=== PATIENT | female | born 1985 | race Caucasian/White ===

== ENCOUNTER 2016-04-18 10:59 | Outpatient (CLI) | payer OTHER | END 2016-04-18 11:00 | disposition home or self-care (01) | DX: N64.52 Nipple discharge (principal) ==

== ENCOUNTER 2016-10-02 13:46 | Outpatient (CLI) | payer OTHER ==
--- NOTE | 2016-10-02 17:34 | Mammography Report ---
DIGITAL DIAGNOSTIC LEFT MAMMOGRAM: 10/02/2016 CLINICAL INDICATION: Intermittent spontaneous clear to milky nipple discharge. COMPARISON: 04/18/2016 TECHNIQUE: Left CC, MLO, laterally exaggerated CC, true lateral, spot magnification views. The left breast again demonstrates heterogeneously dense fibroglandular parenchyma. A few punctate, typically benign calcifications are present. No suspicious masses, clustered microcalcifications, or regions of architectural distortion are identified. Specifically, no left retroareolar lesion is ap preciated. There has been no significant interval change. IMPRESSION: BENIGN FINDINGS. RECOMMENDATION: CONTINUED CLINICAL MANAGEMENT. ROUTINE ANNUAL SCREENING, TO COMMENCE AT AGE 40, UNL ESS OTHERWISE CLINICALLY INDICATED. BIRADS CATEGORY: 2, BENIGN FINDINGS. STANDARD QUALIFYING STATEMENTS 1. This examination was reviewed with the aid of Computed-Aided Detection (CAD). 2. A negative or benign imaging report should not delay biopsy if clinically suspicious findings are present. Consider surgical consultation if warranted. More than 5% of cancers are not identified b y imaging. 3. Dense breasts may obscure an underlying neoplasm. JOB #: [id number] EXT JOB #:
== END 2016-10-02 13:47 | disposition home or self-care (01) ==
LOC: DI 13:46
PROVIDERS: ATTEND Surgery
DX: N64.52 Nipple discharge (principal)

== ENCOUNTER 2017-12-10 09:45 | Outpatient (CLI) | payer OTHER | END 2017-12-10 09:46 | disposition home or self-care (01) | LOC: SC 09:45 | PROVIDERS: ATTEND Internal Medicine Pulmonary Disease | DX: G47.10 Hypersomnia, unspecified (principal); R51 Headache; R06.83 Snoring; R41.89 Other symptoms and signs involving cognitive functions and awareness; G47.8 Other sleep disorders | CPT/HCPCS: 99203; 99212 ==

== ENCOUNTER 2018-02-01 20:43 | Outpatient (CLI) | payer OTHER | END 2018-02-01 20:44 | disposition home or self-care (01) | LOC: SC 20:43 | PROVIDERS: ATTEND Internal Medicine Pulmonary Disease | DX: G47.61 Periodic limb movement disorder (principal) | CPT/HCPCS: 95810 ==

== ENCOUNTER 2018-03-10 12:45 | Outpatient (CLI) | payer OTHER | END 2018-03-10 12:46 | disposition home or self-care (01) | LOC: SC 12:45 | PROVIDERS: ATTEND Nurse Practitioner Family | DX: R06.83 Snoring (principal); G47.61 Periodic limb movement disorder; G25.81 Restless legs syndrome; R68.84 Jaw pain | CPT/HCPCS: 99212; 99214 ==

== ENCOUNTER 2019-06-09 08:00 | Outpatient (CLI) | payer OTHER ==
[2019-06-09 20:31] LABS: TRICHOMONAS VAGINALIS DNA NEGATIVE (NEGATIVE)
== END 2019-06-09 23:59 | disposition home or self-care (01) ==
LOC: LAB.R 08:00
PROVIDERS: ATTEND Obstetrics & Gynecology
DX: Z36.85 Encounter for antenatal screening for Streptococcus B (principal)
CPT/HCPCS: 87491; 87591; 87661; 87797

== ENCOUNTER 2019-07-08 12:52 | Inpatient (IN) | payer OTHER ==
[2019-07-08] MEDS ORDERED: miSOPROStoL 200 MCG TABLET PR PRN (14:00)
[2019-07-08] MEDS ORDERED: LACTATED RINGERS 1,000 ML IV SCH (14:00)
[2019-07-08] MEDS ORDERED: SODIUM CHLORIDE FLUSH 0.9% 10 ML SYRINGE IVP PRN (14:00)
[2019-07-08] MEDS ORDERED: fentaNYL 100 MCG/2 ML VIAL IVP PRN (14:00)
[2019-07-08] MEDS ORDERED: ONDANSETRON 4 MG/2 ML VIAL IVP PRN (14:00)
[2019-07-08] MEDS ORDERED: METHYLERGONOVINE 0.2 MG/ML VIAL IM PRN (14:00)
--- NOTE | 2019-07-08 14:26 | PREOP HISTORY & PHYSICAL ---
DATE OF SERVICE: 07/08/2019 Physician: Otilio Melendez MD IDENTIFICATION: The patient is a 34-year-old G3, P2 female whose EDC is July 08. This was determined with early exams. She is currently 39.6 weeks. CHIEF COMPLAINT: Desires induction. HISTORY OF PRESENT ILLNESS: The patient initiated her OB care at [facility]. Her labs show her to be O positive. She is rubella immune. Her STI checks are negative. Her 50 gram Glucola was 116. She is GBS negative. Antibody screen is also negative. PAST MEDICAL HABITS: Hypothyroidism. CURRENT MEDICATIONS 1. vitamins. 2. Stool softener. 3. Levothyroxine 125 mcg daily. PAST SURGICAL HISTORY: The patient has had an appendectomy, as well as a thyroid lobectomy. 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 She denies the use of street or addictive drugs, alcohol, marijuana or cigarettes. She is active duty. She is and lives with her spouse. FAMILY HISTORY: Positive for diabetes, high cholesterol, hypertension, as well as thyroid disorder. PHYSICAL EXAMINATION GENERAL: Patient is a well-developed, well-nourished female. She is obese. VITAL SIGNS: Normal. HEENT: Pupils are equal, round. Extraocular muscles intact. Thyroid is not palpably enlarged. HEART: Regular rate and rhythm without murmurs. LUNGS: Lung escalera are clear without rales or wheezes. BACK: No spinal or CVA tenderness noted. ABDOMEN: Her exam on the showed her fundal height to be 40 cm. Her cervix was 3 cm, 40%, -2 and anterior. Today, her exam still showed her 3 cm, 40%, -2, but the cervix was now more posterior. IMPRESSION 1. A 34-year-old G3, P2, at 39.6 weeks. 2. The patient desires induction of labor. At this time, we will start her on Pitocin. When the head is sufficiently distended, we will plan to rupture membranes. She will have an epidural as needed, as indicated. TD: 07/08/2019 14:10 MTDD
[2019-07-08 14:29] LABS: BASOPHILS % (AUTO) 0.3 %; EOSINOPHILS # (AUTO) 0.1 10^3/uL (0.0-0.7); EOSINOPHILS % (AUTO) 0.8 %; HGB - HEMOGLOBIN 12.4 g/dL (12.0-16.0); LYMPHOCYTES # (AUTO) 1.7 10^3/uL (1.5-3.5); LYMPHOCYTES % (AUTO) 14.8 %; MEAN CORPUSCULAR HEMOGLOBIN 31.1 pg (27.0-31.0); MEAN CORPUSCULAR HGB CONC 33.9 g/dL (32.0-36.0); MEAN CORPUSCULAR VOLUME 91.7 fL (81.0-99.0); MEAN PLATELET VOLUME 12.4 fL (7.9-10.8); MONOCYTES # (AUTO) 0.7 10^3/uL (0.0-1.0); MONOCYTES % (AUTO) 5.9 %; NEUTROPHILS # (AUTO) 8.6 10^3/uL (1.5-6.6); PLT - PLATELET COUNT 163 10^3/uL (130-450); RED BLOOD COUNT 3.99 10^6/uL (4.20-5.40); RED CELL DISTRIBUTION WIDTH 12.7 % (12.0-15.0); WHITE BLOOD COUNT 11.2 x10^3/uL (4.8-10.8)
[2019-07-08] MEDS ORDERED: OXYTOCIN/SODIUM CHLORIDE 500 ML IV SCH (14:49)
--- NOTE | 2019-07-08 18:42 | PROVIDER PROGRESS NOTE ---
Labor Progress Note - Uterine Monitoring Uterine Monitoring Mode: positive: External toco Contraction Frequency (min/apart): 3-5 Contraction Intensity: positive: Mild to moderate (3/10) Uterine Resting Tone: positive: Soft - Monitoring Monitor Mode: positive: External ultrasound Heart Rate Baseline: 140 Heart Rate Variability: positive: Moderate (6-25 bmp) Accelerations: positive: Present, 15x15 Decelerations: positive: None Strip Review: positive: Category I - Vaginal Exam Dilation (in cm): 4 Effacement (%): 50% Station: -2 Cervical Position: Midposition - Labor Progress Note Labor Progress Note/Additional Text: Internal oss is still tight and strong. Stop pit and give misoprostal
[2019-07-08] MEDS: miSOPROStoL 100 MCG TABLET BC SCH ×2 (19:43→23:45)
[2019-07-08] MEDS ORDERED: miSOPROStoL 100 MCG TABLET BC SCH (20:00)
[2019-07-09] MEDS ORDERED: miSOPROStoL 100 MCG TABLET BC SCH (03:55)
--- NOTE | 2019-07-09 08:06 | PROVIDER PROGRESS NOTE ---
Labor Progress Note - Uterine Monitoring Uterine Monitoring Mode: positive: External toco Contraction Frequency (min/apart): 5 Contraction Intensity: positive: Mild Uterine Resting Tone: positive: Soft - Monitoring Monitor Mode: positive: External ultrasound Heart Rate Baseline: 135 Heart Rate Variability: positive: Moderate (6-25 bmp) Accelerations: positive: Present, 15x15 Decelerations: positive: Variable, Intermittent (<50% x20 min) Strip Review: positive: Category I - Vaginal Exam Dilation (in cm): 5 Effacement (%): 75 Station: -2 Cervical Position: Midposition - Labor Progress Note Labor Progress Note/Additional Text: cervix is soft. internal oss has resolved. Start pit, AROM when able.
[2019-07-09] MEDS: LEVOTHYROXINE 125 MCG TABLET PO SCH (08:11)
[2019-07-09] MEDS ORDERED: OXYTOCIN/SODIUM CHLORIDE 500 ML IV SCH (09:00)
[2019-07-09] MEDS ORDERED: LIDOCAINE-MPF 1% 30 ML VIAL ONE (12:41)
[2019-07-09] MEDS ORDERED: miSOPROStoL 200 MCG TABLET ONE (13:25)
[2019-07-09] MEDS: OXYTOCIN/SODIUM CHLORIDE 500 ML IV PRN ×3 (14:23→17:10)
[2019-07-09] MEDS ORDERED: TRANEXAMIC ACID 1,000 MG/10 ML VIAL ONE (14:40)
[2019-07-09] MEDS ORDERED: TRANEXAMIC ACID 1,000 MG in SODIUM CHLORIDE 0.9% 100ML 100 ML IV STA (14:46)
[2019-07-09] MEDS ORDERED: SIMETHICONE CHEW 80 MG TABLET PO PRN (15:45)
[2019-07-09] MEDS ORDERED: ACETAMINOPHEN 500 MG TABLET PO PRN (15:45)
[2019-07-09] MEDS ORDERED: CARBOPROST TROMETHAMINE 250 MCG/ML AMP IM PRN (15:50)
[2019-07-09] MEDS ORDERED: LACTATED RINGERS 1,000 ML IV SCH (16:00)
[2019-07-09 16:07] LABS: BASOPHILS # (AUTO) 0.1 10^3/uL (0.0-0.1); BASOPHILS % (AUTO) 0.3 %; EOSINOPHILS % (AUTO) 0.1 %; HGB - HEMOGLOBIN 11.1 g/dL (12.0-16.0); LYMPHOCYTES # (AUTO) 1.1 10^3/uL (1.5-3.5); LYMPHOCYTES % (AUTO) 6.3 %; MEAN CORPUSCULAR HEMOGLOBIN 30.5 pg (27.0-31.0); MEAN CORPUSCULAR VOLUME 92.3 fL (81.0-99.0); MEAN PLATELET VOLUME 12.5 fL (7.9-10.8); MONOCYTES # (AUTO) 0.8 10^3/uL (0.0-1.0); MONOCYTES % (AUTO) 4.7 %; NEUTROPHILS # (AUTO) 15.2 10^3/uL (1.5-6.6); NEUTROPHILS % (AUTO) 87.6 %; PLT - PLATELET COUNT 151 10^3/uL (130-450); RED BLOOD COUNT 3.64 10^6/uL (4.20-5.40); RED CELL DISTRIBUTION WIDTH 12.9 % (12.0-15.0); WHITE BLOOD COUNT 17.3 x10^3/uL (4.8-10.8)
--- NOTE | 2019-07-09 16:13 | PROVIDER PROGRESS NOTE ---
Subjective - Prog Note Date Prog Note Date: 07/09/19 Prog Note Time: 13:00 - Subjective Subjective: Patient is laboring without epidural. Coping well. Membranes intact. Objective - Vital Signs/Intake & Output Reviewed Vital Signs: Yes Intake & Output: Intake & Output 07/06/19 07/07/19 07/08/19 07/09/19 23:59 23:59 23:59 23:59 Intake Total 1000 Balance 1000 - Objective General Appearance: positive: Moderate distress Respiratory: positive: No respiratory distress Skin: positive: Color nml Extremities: positive: Non-tender Neurologic/Psychiatric: positive: Oriented x3 (SVE 5.5/80/-2) - Lab Results Fish Bones: 07/09/19 15:00 Other Labs: Lab Results x24hrs 07/09/19 07/09/19 07/09/19 Range/Units 15:00 15:00 14:50 Whole Blood INR 0.9 (0.8-1.2) Fibrinogen 441 (220-496) mg/dL Blood Type Blood Type Recheck O POSITIVE Antibody Screen Crossmatch IS Only 07/08/19 Range/Units 14:00 Whole Blood INR (0.8-1.2) Fibrinogen (220-496) mg/dL Blood Type O POSITIVE Blood Type Recheck Antibody Screen NEGATIVE Crossmatch IS Only See Detail Assessment/Plan - Problem List (1) Elective induction of labor planned Impression: Induction of labor: Pitocin at 11 mU/min EFM 130 mod kannan 15x15 accels no decels TOCO: Q2-3 min GBS neg ETA AROM at 13:01 Minimal passage of fluid
[2019-07-09] MEDS ORDERED: ceFAZolin 2 GM in SODIUM CHLORIDE 0.9% MINIBAG 100 ML IV ONE (17:00)
[2019-07-09] MEDS ORDERED: LIDOCAINE-MPF 1% 30 ML VIAL ID PRN (17:24)
[2019-07-09] MEDS: IBUPROFEN 600 MG TABLET PO PRN (17:27)
[2019-07-09] MEDS: SODIUM CHLORIDE FLUSH 0.9% 10 ML SYRINGE IVP SCH (17:46)
--- NOTE | 2019-07-09 17:52 | DELIVERY NOTE ---
Delivery Note - Labor Labor: positive: Induced by oxytocin - Infant Delivery Method Delivery Method: positive: Spontaneous vaginal delivery - Cervical Ripening Method Cervical Ripening Method: positive: Misoprostil - Presentation Presentation: positive: Vertex - Nuchal Cord Nuchal Cord: positive: Present - Anesthetic Anesthetic: positive: Lidocaine - 1% plain Volume: positive: 4cc - Amniotic Fluid Description Amniotic Fluid Description: positive: Bloody - Laceration Laceration: positive: 2nd degree - Suture Suture Type: positive: Vicryl Suture Size: positive: 3-0 - Delivery Outcome Delivery Outcome: positive: Livebirth - Elmo : positive: Placed in direct skin contact with mother, Warmed, [place] used sex: positive: Male - Cord Cord: positive: 3 vessels - Placenta Placenta: positive: Intact, Expressed - Estimated Blood Loss Estimated Blood Loss (in cc): 1,600 (may be as much as 2L) - Post Delivery Events Post Delivery Events: positive: Hemorrhage - Delivery Comments (Free Text/Narrative) Delivery Comments (Free Text/Narrative): STAGE I: Patient is a 34-year-old G3, P2 at 40 weeks and 0 days estimated gestational age with a SUNNI of 07/09/2019 admitted on 07/08/2019 at 39 weeks and 6 days for elective induction of labor. Initial SVE was 350-2 station. She was admitted and started on Pitocin for indcution. She received Pitocin infusion from 15:00-18:30 reaching a max dose of 10 milliunits/min. With minimal change in her cervical exam, pitocin was discontinued and she was started on misoprostol for cervical ripening. She received 2 doses of misoprostol 25 mcg followed with 4 doses of 50 mcg misopro stol. She was then started up on Pitocin at 8:30 AM on 07/09/19. She reached a max dose of 11 unit milliunits per minute. Patient underwent artificial rupture of membranes, notable for passage of scant fluid, blood-tinged. She progressed rapidly to complete at 1400. She began pushing at 1403. GBS negative, antibiotics were not indicated. Did not receive any analgesia/epidural for unmedicated labor course. Category 1 tracing throughout all of stage I other than the final few minutes prior to delivery, at which time she showed some recurrent variables. STAGE II: Patient was noted to be complete at 1400. She began pushing at 1403. She delivered after less than 1 minute of pushing with time of 1404. She delivered a viable male infant from vertex/FRANKLIN presentation. Right shoulder was anterior and delivered easily. had both a tight nuchal and a bandolier cord. Due to the rapidity of the delivery, infant was delivered through the cord. Infant was placed on mother's chest. Cord was clamped x2 and cut after cord pulsations had ceased. Apgars were 8 and 9 and weight is pending. STAGE III: Placenta was delivered at 1423 with manual expression and gentle downward traction on the cord. Pitocin has been started immediately after delivery of the . It was discontinued due to delayed delivery of the placenta. The placenta delivered at 1423. At that time Pitocin was restarted. Patient was also given misoprostol 600 mcg BC x1 at 14:23 due to heavy vaginal bleeding following delivery of the placenta. hemorrhage was managed with bimanual massage in addition to the Pitocin and misoprostol. Methergine 0.2 mg given at 1430. Bleeding slowed at that point. Patient had a small second-degree laceration which was repaired with 3-0 Vicryl in the usual sterile fashion in layers. She was pretreated with a total of 4 cc lidocaine 1% without epinephrine. Bleeding increased shortly after completion of the repair. Patient was given tranexamic acid 1 g IV x1 at 1446. A second line was placed and labs were drawn. She was also given IV fluid bolus of 500 cc LR in addition to her continuous infusion of 150 cc/hr. At close of procedure, good hemostasis was noted. Patient was given cefazolin 2g IV x1 for porphylaxis given heavy manipulation of the uterus. Total EBL was estimated to be 1600.
[2019-07-09] MEDS ORDERED: diphenhydrAMINE INJ 50 MG/ML VIAL IVP ONE (17:55)
[2019-07-09 18:02] LABS: BASOPHILS # (AUTO) 0.1 10^3/uL (0.0-0.1); BASOPHILS % (AUTO) 0.4 %; HGB - HEMOGLOBIN 10.4 g/dL (12.0-16.0); LYMPHOCYTES # (AUTO) 1.6 10^3/uL (1.5-3.5); LYMPHOCYTES % (AUTO) 7.7 %; MEAN CORPUSCULAR HEMOGLOBIN 30.7 pg (27.0-31.0); MEAN CORPUSCULAR VOLUME 92.9 fL (81.0-99.0); MEAN PLATELET VOLUME 11.5 fL (7.9-10.8); MONOCYTES % (AUTO) 4.8 %; NEUTROPHILS # (AUTO) 18.3 10^3/uL (1.5-6.6); NEUTROPHILS % (AUTO) 86.1 %; PLT - PLATELET COUNT 153 10^3/uL (130-450); RED BLOOD COUNT 3.39 10^6/uL (4.20-5.40); RED CELL DISTRIBUTION WIDTH 12.9 % (12.0-15.0); WHITE BLOOD COUNT 21.2 x10^3/uL (4.8-10.8)
[2019-07-09 18:09] LABS: INR 1.1 (0.8-1.2); PT - PROTHROMBIN TIME 12.6 secs (9.9-12.6)
[2019-07-09 18:44] LABS: DIFFERENTIAL COMMENT MANUAL=AUTO DIFF; PLATELET ESTIMATE, MANUAL NORMAL (130-450,000) (NORMAL); PLATELET MORPHOLOGY NORMAL APPEARANCE (NORMAL); RBC MORPHOLOGY (MULTIPLE) NORMAL APPEARANCE (NORMAL)
[2019-07-09 22:31] LABS: HGB - HEMOGLOBIN 10.1 g/dL (12.0-16.0); MEAN CORPUSCULAR HEMOGLOBIN 31.1 pg (27.0-31.0); MEAN CORPUSCULAR HGB CONC 34.5 g/dL (32.0-36.0); MEAN CORPUSCULAR VOLUME 90.2 fL (81.0-99.0); MEAN PLATELET VOLUME 11.5 fL (7.9-10.8); RED BLOOD COUNT 3.25 10^6/uL (4.20-5.40); WHITE BLOOD COUNT 18.8 x10^3/uL (4.8-10.8)
[2019-07-10] MEDS: ACETAMINOPHEN 325 MG TABLET PO PRN ×4 (02:56→21:55)
[2019-07-10 06:20] LABS: HGB - HEMOGLOBIN 9.2 g/dL (12.0-16.0); MEAN CORPUSCULAR HEMOGLOBIN 30.6 pg (27.0-31.0); MEAN CORPUSCULAR HGB CONC 33.6 g/dL (32.0-36.0); MEAN PLATELET VOLUME 11.5 fL (7.9-10.8); RED BLOOD COUNT 3.01 10^6/uL (4.20-5.40); RED CELL DISTRIBUTION WIDTH 13.3 % (12.0-15.0)
[2019-07-10] MEDS: LEVOTHYROXINE 125 MCG TABLET PO SCH (06:49)
[2019-07-10] MEDS: SODIUM CHLORIDE FLUSH 0.9% 10 ML SYRINGE IVP SCH (09:15)
[2019-07-10] MEDS: DOCUSATE SODIUM 100 MG CAPSULE PO PRN ×2 (09:15→21:56)
--- NOTE | 2019-07-10 12:38 | PROVIDER PROGRESS NOTE ---
Subjective - Prog Note Date Prog Note Date: 07/10/19 Prog Note Time: 12:35 - Subjective Subjective: Patient is doing quite well on day #1. She received 1 unit of blood last night and had marked improvement in levels of energy, ability to stand and ambulate, reduced shortness of breath and dizziness, and has been making adequate urine.Hematocrit this morning is 27.4. Patient is otherwise without symptoms. Opting not to proceed with second unit of blood. She is now up and ambulating, tolerating p.o., pain is well managed, and she is adequately voiding. Minimal lochia. She feels she is ready for discharge. Objective - Vital Signs/Intake & Output Reviewed Vital Signs: Yes Vital Signs: Vital Signs x48h Temp Pulse Resp BP Pulse Ox 07/10/19 09:15 98.1 F 105 H 20 110/71 100 Intake & Output: Intake & Output 07/07/19 07/08/19 07/09/19 07/10/19 23:59 23:59 23:59 23:59 Intake Total 2741.667 2200 Output Total 420 1450 Balance 2321.667 750 - Objective General Appearance: positive: No acute distress Neck: positive: Nml inspection Respiratory: positive: No respiratory distress, Breath sounds nml Cardiovascular: positive: Other (RR) Abdomen: positive: Non-tender, Other (Soft and nontender, nondistended. Fundus firm below the umbilicus) Skin: positive: Color nml Extremities: positive: Pedal edema, Other (Bilateral lower extremity edema. No tenderness. Negative Homans sign.) - Lab Results Fish Bones: 07/10/19 06:11 Other Labs: Lab Results x24hrs 07/10/19 07/09/19 07/09/19 Range/Units 06:11 22:24 17:55 WBC 16.0 H 18.8 H 21.2 H (4.8-10.8) x10^3/uL RBC 3.01 L 3.25 L 3.39 L (4.20-5.40) 10^6/uL Hgb 9.2 L 10.1 L 10.4 L (12.0-16.0) g/dL Hct 27.4 L 29.3 L 31.5 L (37.0-47.0) % MCV 91.0 90.2 92.9 (81.0-99.0) fL MCH 30.6 31.1 H 30.7 (27.0-31.0) pg MCHC 33.6 34.5 33.0 (32.0-36.0) g/dL RDW 13.3 13.0 12.9 (12.0-15.0) % Plt Count 131 141 153 (130-450) 10^3/uL MPV 11.5 H 11.5 H 11.5 H (7.9-10.8) fL Neut # (Auto) 18.3 H (1.5-6.6) 10^3/uL Lymph # (Auto) 1.6 (1.5-3.5) 10^3/uL [place] # (Auto) 1.0 (0.0-1.0) 10^3/uL Eos # (Auto) 0.0 (0.0-0.7) 10^3/uL Baso # (Auto) 0.1 (0.0-0.1) 10^3/uL Absolute Nucleated RBC 0.00 x10^3/uL Band Neuts % (Manual) Not Reportable Abnorm Lymph % (Manual) Not Reportable Nucleated RBC % 0.0 /100WBC Neutrophils # (Manual) Not Reportable Lymphocytes # (Manual) Not Reportable Monocytes # (Manual) Not Reportable Eosinophils # (Manual) Not Reportable Basophils # (Manual) Not Reportable Differential Comment MANUAL=AUTO DIFF Manual Slide Review Indicated Platelet Estimate NORMAL (130-450,000) (NORMAL) Platelet Morphology NORMAL APPEARANCE (NORMAL) RBC Morph Micro Appear NORMAL APPEARANCE (NORMAL) PT (9.9-12.6) secs INR (0.8-1.2) Whole Blood INR (0.8-1.2) Fibrinogen (220-496) mg/dL Blood Type Blood Type Recheck Antibody Screen Crossmatch IS Only 07/09/19 07/09/19 07/09/19 Range/Units 17:55 15:00 15:00 WBC (4.8-10.8) x10^3/uL RBC (4.20-5.40) 10^6/uL Hgb (12.0-16.0) g/dL Hct (37.0-47.0) % MCV (81.0-99.0) fL MCH (27.0-31.0) pg MCHC (32.0-36.0) g/dL RDW (12.0-15.0) % Plt Count (130-450) 10^3/uL MPV (7.9-10.8) fL Neut # (Auto) (1.5-6.6) 10^3/uL Lymph # (Auto) (1.5-3.5) 10^3/uL [place] # (Auto) (0.0-1.0) 10^3/uL Eos # (Auto) (0.0-0.7) 10^3/uL Baso # (Auto) (0.0-0.1) 10^3/uL Absolute Nucleated RBC x10^3/uL Band Neuts % (Manual) Abnorm Lymph % (Manual) Nucleated RBC % /100WBC Neutrophils # (Manual) Lymphocytes # (Manual) Monocytes # (Manual) Eosinophils # (Manual) Basophils # (Manual) Differential Comment Manual Slide Review Platelet Estimate (NORMAL) Platelet Morphology (NORMAL) RBC Morph Micro Appear (NORMAL) PT 12.6 (9.9-12.6) secs INR 1.1 (0.8-1.2) Whole Blood INR (0.8-1.2) Fibrinogen 448 441 (220-496) mg/dL Blood Type Blood Type Recheck O POSITIVE Antibody Screen Crossmatch IS Only 07/09/19 07/09/19 07/08/19 Range/Units 15:00 14:50 14:00 WBC 17.3 H (4.8-10.8) x10^3/uL RBC 3.64 L (4.20-5.40) 10^6/uL Hgb 11.1 L (12.0-16.0) g/dL Hct 33.6 L (37.0-47.0) % MCV 92.3 (81.0-99.0) fL MCH 30.5 (27.0-31.0) pg MCHC 33.0 (32.0-36.0) g/dL RDW 12.9 (12.0-15.0) % Plt Count 151 (130-450) 10^3/uL MPV 12.5 H (7.9-10.8) fL Neut # (Auto) 15.2 H (1.5-6.6) 10^3/uL Lymph # (Auto) 1.1 L (1.5-3.5) 10^3/uL [place] # (Auto) 0.8 (0.0-1.0) 10^3/uL Eos # (Auto) 0.0 (0.0-0.7) 10^3/uL Baso # (Auto) 0.1 (0.0-0.1) 10^3/uL Absolute Nucleated RBC 0.00 x10^3/uL Band Neuts % (Manual) Abnorm Lymph % (Manual) Nucleated RBC % 0.0 /100WBC Neutrophils # (Manual) Lymphocytes # (Manual) Monocytes # (Manual) Eosinophils # (Manual) Basophils # (Manual) Differential Comment Manual Slide Review Platelet Estimate (NORMAL) Platelet Morphology (NORMAL) RBC Morph Micro Appear (NORMAL) PT (9.9-12.6) secs INR (0.8-1.2) Whole Blood INR 0.9 (0.8-1.2) Fibrinogen (220-496) mg/dL Blood Type O POSITIVE Blood Type Recheck Antibody Screen NEGATIVE Crossmatch IS Only See Detail Assessment/Plan - Problem List (1) Elective induction of labor planned Impression: PPD#1 s/p with PPH with EBL 1600 cc -S/p transfusion with 1 unit PRBCs -Feeling well and denies symptoms of anemia -Meeting goals for discharge. -Routine DC instructions given.
--- NOTE | 2019-07-10 12:42 | Discharge Plan ---
Discharge Plan Problem Reviewed?: Yes Disposition: 01 Home, Self Care Condition: Good Diet: Regular Activity Restrictions: Additional Comments (Nothing in the vagina for 6 weeks: No intercourse, tampons, douching Call for: -Fever greater than 100.5 - Pain that does not improve with pain medication -Heavy bleeding in which you are soaking a pad an hour for 2 hours in a row Ibuprofen 600 mg by mouth every 6 hours as needed for pain Acetaminophen 500-1000 mg by mouth every 8 hours as needed for pain Docusate 100-200 mg by mouth twice a day as needed for constipation Iron 325 mg by mouth twice daily) Shower Restrictions: No Additional Instructions or Follow Up instructions: Take iron supplementation, preferably with vitamin C Follow-up in 6 weeks or sooner as needed No Smoking: If you smoke, Please STOP! Call for help. Follow-up with: JAZMYN GUEVARA MD, PHD [Physician No Access] -
--- NOTE | 2019-07-10 12:45 | DISCHARGE SUMMARY ---
"Discharge Summary Admit Date: 07/08/19 Discharge Date: 07/10/19 Discharging Provider: Kiran Condition at Discharge: Good Discharge Disposition: 01 Home, Self Care Discharge Facility Name: [facility] - DIAGNOSES Admission Diagnoses: IUP at 39w6d ega Elective induction of labor Discharge Diagnoses with Status of Each Condition: Delivery of term gestation hemorrhage Transfusion with packed red blood cells Acute blood loss anemia - HPI History of Present Illness: Patient is a 34-year-old G3, P2 at 39 weeks and 6 days estimated gestational age with a SUNNI of 07/09/2019 admitted on 07/08/2019 for elective induction of labor. - CONSULTS | PROCEDURES Procedures: Spontaneous vaginal delivery Transfusion of 1 unit packed red blood cells Epidural placement - HOSPITAL COURSE Hospital Course: STAGE I: Patient is a 34-year-old G3, P2 at 40 weeks and 0 days estimated gestational age with a SUNNI of 07/09/2019 admitted on 07/08/2019 at 39 weeks and 6 days for elective induction of labor. Initial SVE was 350-2 station. She was admitted and started on Pitocin for indcution. She received Pitocin infusion from 15:00-18:30 reaching a max dose of 10 milliunits/min. With minimal change in her cervical exam, pitocin was discontinued and she was started on misoprostol for cervical ripening. She received 2 doses of misoprostol 25 mcg followed with 4 doses of 50 mcg misoprostol. She was then started up on Pitocin at 8:30 AM on 07/09/19. She reached a max dose of 11 unit milliunits per minute. Patient underwent artificia l rupture of membranes, notable for passage of scant fluid, blood-tinged. She progressed rapidly to complete at 1400. She began pushing at 1403. GBS negative, antibiotics were not indicated. Did not receive any analgesia/epidural for unmedicated labor course. Category 1 tracing throughout all of stage I other than the final few minutes prior to delivery, at which time she showed some recurrent variables. STAGE II: Patient was noted to be complete at 1400. She began pushing at 1403. She delivered after less than 1 minute of pushing with time of 1404. She delivered a viable male infant from vertex/FRANKLIN presentation. Right shoulder was anterior and delivered easily. had both a tight nuchal and a bandolier cord. Due to the rapidity of the delivery, was delivered through the cord. was placed on mother's chest. Cord was clamped x2 and cut after cord pulsations had ceased. Apgars were 8 and 9 and weight is pending. STAGE III: Placenta was delivered at 1423 with manual expression and gentle downward traction on the cord. Pitocin has been started immediately after delivery of the infant. It was discontinued due to delayed delivery of the placenta. The placenta delivered at 1423. At that time Pitocin was restarted. Patient was also given misoprostol 600 mcg BC x1 at 14:23 due to heavy vaginal bleeding following delivery of the placenta. hemorrhage was managed with bimanual massage in addition to the Pitocin and misoprostol. Methergine 0.2 mg given at 1430. Bleeding slowed at that point. Patient had a small second-degree laceration which was repaired with 3-0 Vicryl in the usual sterile fashion in layers. She was pretreated with a total of 4 cc lidocaine 1% without epinephrine. Bleeding increased shortly after completion of the repair. Patient was given tranexamic acid 1 g IV x1 at 1446. A second line was placed and labs were drawn. She was also given IV fluid bolus of 500 cc LR in addition to her continuous infusion of 150 cc/hr. At close of procedure, good hemostasis was noted. Patient was given cefazolin 2g IV x1 for porphylaxis given heavy manipulation of the uterus. Total EBL was estimated to be 1600. Later on PPD#0, patient felt lightheaded, was tachycardic, and was unable to stand without shortness of breath and acute onset emesis. CBC was 31.6 but did not correlate with the degree of blood loss of patient's clinical presentation. Patient was consented to risks/benefits/alternative and untimately provided written consent for transfusion. She was transfused with one unit of packed red blood cells. She experienced marked clinical improvement both in terms of symptoms and her vital signs. Repeat HCT was 27.4 but patient was no longer symptomatic and further transfusion was not pursued. By PPD#1, she was meeting goals for discharge and was requesting discharge to home. - ALLERGIES Allergies/Adverse Reactions: Allergies Allergy/AdvReac Type Severity Reaction Status Date / Time No Known Drug Allergies Allergy Verified 07/08/19 14:23 - LABS Result Diagrams: 07/10/19 06:11 - FOLLOW UP Follow Up: 6 weeks or sooner as needed - TIME SPENT Time Spent in Discharge (Minutes): 30"
[2019-07-10] MEDS: IBUPROFEN 600 MG TABLET PO PRN (21:56)
[2019-07-11 07:52] VITALS: BP 95/59
[2019-07-11] MEDS: DOCUSATE SODIUM 100 MG CAPSULE PO PRN (08:03)
[2019-07-11] MEDS: IBUPROFEN 600 MG TABLET PO PRN (08:03)
[2019-07-11] MEDS: LEVOTHYROXINE 125 MCG TABLET PO SCH (08:13)
--- NOTE | 2019-07-11 12:48 | PROVIDER PROGRESS NOTE ---
Subjective - Prog Note Date Prog Note Date: 07/11/19 Prog Note Time: 12:47 - Subjective Subjective: PPD 2 Feeling very well. No pain, scant lochia. Ambulating, mello reg diet. well. Planning Mirena for contraception. VSS afeb Abd soft, non-tender. Fundus firm below umbilicus. A/P Stable. DC home today. F/U as scheduled. Objective - Vital Signs/Intake & Output Vital Signs: Vital Signs x48h Temp Pulse Resp BP Pulse Ox 07/11/19 07:51 97.9 F 93 18 95/59 L 100 Intake & Output: Intake & Output 07/08/19 07/09/19 07/10/19 07/11/19 23:59 23:59 23:59 23:59 Intake Total 2741.667 2700 Output Total 420 1450 Balance 2321.667 1250 - Lab Results Fish Bones: 07/10/19 06:11
--- NOTE | 2019-07-11 13:45 | Labor Flowsheet ---
Labor Flowsheet Datetime Report Generated by CPN: 07/11/2019 13:45 Datetime: 07/11/2019 07:52 VITAL SIGNS NBP Sys/Janessa/Mean (mmHg): 95 : 59 : 68 Pulse: 97 Datetime: 07/10/2019 21:30 SpO2 (%): 100 Datetime: 07/09/2019 17:55 Stage of : Recovery Datetime: 07/09/2019 16:15 Respirations: 18 Temperature (C): 36.6 Datetime: 07/09/2019 14:41 Communication Comments: Ajaz paged immediately to 2103 Datetime: 07/09/2019 14:16 LaborFlag: Labor Datetime: 07/09/2019 14:03 STAGE 2 Pushing: Urge to Push Pushing Position: Pushing with Contractions Pushing Progress: Descent with Pushing Datetime: 07/09/2019 14:02 VAGINAL EXAM Dilatation (cm): 10.0 Effacement (%): 100 Exam by: dr [email or web address] Datetime: 07/09/2019 14:00 UTERINE ACTIVITY Monitor Mode: External Frequency (min): 2-3 Quality: Strong Duration (sec): 50-70 Pattern: Normal: <= 5 Contractions in 10 Minutes Resting Tone (Palpate): Relaxed Contraction Comments: pt feels strong urge to push ASSESSMENT A Monitor Mode: Telemetry FHR Baseline Rate : 135 Variability: Moderate 6-25 bpm Accelerations: None Decelerations: Variable Category: Category II Oxygen Method: Room Air Datetime: 07/09/2019 13:45 COMMUNICATION Communication: Provider at Bedside Provider Notified (Name): Dr McSorely Notification Reason: Labor Status Datetime: 07/09/2019 13:29 Comments: interrupted tracing Datetime: 07/09/2019 13:24 Station: 0 Cervix, Position: Midposition Datetime: 07/09/2019 13:01 Membrane Status: Ruptured Membranes Rupture Method: Artificial Amniotic Fluid Color: Bloody Amniotic Fluid Amount: None Amniotic Fluid Odor: Normal Vaginal Bleeding: Scant Cervix, Consistency: Soft Datetime: 07/09/2019 13:00 Provider Reviewed Strip: Yes Datetime: 07/09/2019 12:33 MEDICATIONS Pitocin (milliunits): Increased to @ 11 Patient Position/Activity: Standing Datetime: 07/09/2019 11:43 Temperature Route: Axillary Datetime: 07/09/2019 11:30 I/O Interventions: Up to BR Datetime: 07/09/2019 10:49 PAIN Pain Scale: 7 Pain Type: Contraction Pain Location: Abdomen Pain Assessment Comments: with contraction Comfort Measures: Breathing/Relaxation Datetime: 07/09/2019 10:20 Pain Coping: Breathing Through Contractions Datetime: 07/09/2019 10:14 Patient Care Comments: pt up to bathroom Datetime: 07/09/2019 08:00 Pitocin Checklist: At Least 1 Acceleration of 15 bpm x 15 Seconds in 30 Minutes or Adequate Variabi lity; No More than 1 Late Deceleration Occurred in Past 30 Minutes; No More than 2 Variable Decelerat ions > 60 Seconds in Duration and decreasing >60 bpm in 30 minutes; No More than 5 Uterine Contractio ns in 10 Minutes for any 20 Minute Interval; Uterus Palpates Soft between Contractions Datetime: 07/09/2019 06:42 Pain Presence: Intermittent Datetime: 07/09/2019 04:44 Monitor Interventions for UA: [place] Adjusted Datetime: 07/09/2019 04:00 Cervical Ripening Agents: Cytotec @ 50 PO Datetime: 07/09/2019 03:47 Procedures: Sterile Vag Exam Datetime: 07/08/2019 23:50 Monitor Interventions for FHR: Ultrasound Adjusted Datetime: 07/08/2019 19:44 MATERNAL ASSESSMENT Level of Consciousness: Alert DTR's/Clonus: DTRs 2+ Headache: Denies Breath Sounds, Left: Clear and Equal Breath Sounds, Right: Clear and Equal Nausea/Vomiting: Denies Datetime: 07/08/2019 19:00 FHR Baseline Changes: No Baseline Change Datetime: 07/08/2019 18:37 Medication Comments: per dr giem, pit off x 1 hour then start miso Datetime: 07/08/2019 18:31 Vaginal Exam Comments: [place] [employer] Datetime: 07/08/2019 14:57 PATIENT CARE IV/Blood Work: New IV Bag Hung
== END 2019-07-11 13:25 | disposition home or self-care (01) | DRG 806 ==
LOC: WFO 12:52 → FBP 13:00 → WFO 13:59 → FBP 14:00 → OBSVTOIN 14:16
PROVIDERS: ADMIT Obstetrics & Gynecology; ATTEND Obstetrics & Gynecology
PROC: 3E033VJ Introduction of Other Hormone into Peripheral Vein, Percutaneous Approach (ICD-10-PCS; 2019-07-08)
PROC: 10E0XZZ Delivery of Products of Conception, External Approach (ICD-10-PCS; principal; 2019-07-09)
PROC: 0KQM0ZZ Repair Perineum Muscle, Open Approach (ICD-10-PCS; 2019-07-09)
PROC: 10907ZC Drainage of Amniotic Fluid, Therapeutic from Products of Conception, Via Natural or Artificial Opening (ICD-10-PCS; 2019-07-09)
PROC: 30233N1 Transfusion of Nonautologous Red Blood Cells into Peripheral Vein, Percutaneous Approach (ICD-10-PCS; 2019-07-09)
DX: O99.284 Endocrine, nutritional and metabolic diseases complicating childbirth (principal); D62 Acute posthemorrhagic anemia; Z37.0 Single live birth; E89.0 Postprocedural hypothyroidism; O70.1 Second degree perineal laceration during delivery; O32.2XX0 Maternal care for transverse and oblique lie, not applicable or unspecified; O69.1XX0 Labor and delivery complicated by cord around neck, with compression, not applicable or unspecified; O69.89X0 Labor and delivery complicated by other cord complications, not applicable or unspecified; O72.1 Other immediate postpartum hemorrhage; O90.81 Anemia of the puerperium; Z3A.40 40 weeks gestation of pregnancy
CPT/HCPCS: 36415; 85025; 85027; 85384; 85610; 86850; 86900; 86901; 86920; A9270; G0378; J1200; J2210; J7120; P9016